=== PATIENT | female | born 1995 | race Two or more races ===

== ENCOUNTER 2017-05-01 17:01 | Observation (INO) | payer SELFPAY ==
[2017-05-01] MEDS ORDERED: RINGERS SOLUTION,LACTATED 1,000 ML IV ONE (17:30)
[2017-05-01 17:34] VITALS: BP 92/53
[2017-05-01] MEDS ORDERED: PREN1TAB89 PO (17:52)
== END 2017-05-01 20:17 | disposition home or self-care (01) ==
LOC: 4S 17:09
PROVIDERS: ADMIT Obstetrics & Gynecology; ATTEND Obstetrics & Gynecology
DX: O36.8130 Decreased fetal movements, third trimester, not applicable or unspecified (principal); Z3A.34 34 weeks gestation of pregnancy
CPT/HCPCS: 59025; 76805; 96360; G0378; J7120; 86703

== ENCOUNTER 2017-05-21 11:15 | Observation (INO) | payer OTHER ==
[~2017-05-21] VITALS: Ht 170.2 cm; Wt 81.2 kg
[~2017-05-21 11:15] MED LIST: PREN1TAB89 PO
[2017-05-21 11:40] VITALS: BP 103/66
[2017-05-21] MEDS: RINGERS SOLUTION,LACTATED 1,000 ML IV SCH ×2 (11:43→13:15)
== END 2017-05-21 15:40 | disposition home or self-care (01) ==
LOC: 4S 11:15
PROVIDERS: ADMIT Obstetrics & Gynecology; ATTEND Obstetrics & Gynecology
DX: Z34.93 Encounter for supervision of normal pregnancy, unspecified, third trimester (principal); Z3A.37 37 weeks gestation of pregnancy
CPT/HCPCS: 59025; 96360; 96361; G0378; J7120

== ENCOUNTER 2017-05-21 17:19 | Inpatient (IN) | payer OTHER ==
[~2017-05-21] VITALS: Ht 170.2 cm; Wt 80.7 kg
[2017-05-27] MEDS ORDERED: RINGERS SOLUTION,LACTATED 1,000 ML IV PRN (19:15)
[2017-05-27] MEDS ORDERED: FentaNYL CITRATE-PF 100 MCG/2 ML VIAL IVP PRN (19:15)
[2017-05-27] MEDS ORDERED: CITRIC ACID/SODIUM CITRATE 30 ML SOLUTION UDCUP PO PRN (19:15)
[2017-05-27] MEDS ORDERED: OXYTOCIN 30 UNITS/LACT RINGERS 500 ML IV ONE (19:15)
[2017-05-27] MEDS ORDERED: METOCLOPRAMIDE HCL 5 MG/ML 2 ML VIAL IVP PRN (19:15)
[2017-05-27] MEDS ORDERED: AMPICILLIN SODIUM 2 GM/NS 100 ML IV ONE (19:30)
[2017-05-27] MEDS ORDERED: DINOPROSTONE 10 MG VAGINAL SUPPOSITORY VG ONE (19:30)
[2017-05-27 19:51] LABS: BASOPHILS % (AUTO) 0.2 % (0.0-2.0); EOSINOPHILS % (AUTO) 1.2 % (1.0-6.0); HEMATOCRIT 33.4 % (36-46); HEMOGLOBIN 11.4 g/dL (12.0-16.0); LYMPHOCYTES % (AUTO) 28.9 % (22.0-44.0); MEAN CORPUSCULAR HEMOGLOBIN 29.4 pg (26.0-34.0); MEAN CORPUSCULAR HGB CONC 34.1 G/dL (31.0-37.0); MEAN CORPUSCULAR VOLUME 86 fL (80-100); MONOCYTES # (AUTO) 0.4 K/uL (0.1-1.0); MONOCYTES % (AUTO) 6.3 % (2.0-9.0); NEUTROPHILS # (AUTO) 4.4 K/uL (1.8-7.7); NEUTROPHILS % (AUTO) 63.4 % (40.0-70.0); RED BLOOD CELL COUNT(AUTO) 3.89 MIL/uL (4.00-5.20); RED CELL DISTRIBUTION WIDTH 13.9 % (11.5-14.5); WHITE BLOOD COUNT (AUTO) 6.9 K/uL (4.5-11.0)
[2017-05-27] MEDS: RINGERS SOLUTION,LACTATED 1,000 ML IV SCH (20:35)
[2017-05-27 22:04] VITALS: BP 103/58
[2017-05-28] MEDS: AMPICILLIN SODIUM 1 GM/NS 50 ML IV SCH ×4 (01:12→13:31)
[2017-05-28] MEDS: RINGERS SOLUTION,LACTATED 1,000 ML IV SCH ×4 (03:50→22:09)
[2017-05-28] MEDS ORDERED: -PHARMACY NOTE- MISC ONE ×2 (07:30)
[2017-05-28] MEDS ORDERED: OXYTOCIN 30 UNITS/LACT RINGERS 500 ML IV PRN (09:02)
[2017-05-28] MEDS ORDERED: ONDANSETRON HCL 4 MG/2 ML VIAL IVP ONE (12:00)
[2017-05-28] MEDS ORDERED: KETOROLAC TROMETHAMINE 60 MG/2 ML VIAL IM ONE (12:00)
[2017-05-28] MEDS ORDERED: EPHEDrine SULFATE 50 MG/ML VIAL IM ONE (12:00)
[2017-05-28] MEDS ORDERED: OXYTOCIN 10 UNITS/ML VIAL IM ONE (12:00)
[2017-05-28] MEDS ORDERED: DEXAMETHASONE SOD PHOS 4 MG/ML VIAL IVP ONE (12:00)
[2017-05-28] MEDS ORDERED: BUPIVACAINE HCL/PF 0.25% 30 ML VIAL ONE (12:32)
[2017-05-28] MEDS ORDERED: BUPIVACAINE HCL 0.125%/NS/PF 100 ML ED ONE (12:33)
[2017-05-28] MEDS ORDERED: LIDOCAINE HCL 2%/EPI 1:200,000/PF 10 ML VIAL ONE (15:34)
[2017-05-28] MEDS ORDERED: FentaNYL CITRATE-PF 100 MCG/2 ML VIAL ONE (15:51)
[2017-05-28] MEDS ORDERED: MORPHINE SULFATE/PF 0.5 MG/ML 10 ML AMP ONE (15:52)
[2017-05-28] MEDS ORDERED: MIDAZOLAM HCL 2 MG/2 ML VIAL ONE (15:52)
[2017-05-28] MEDS ORDERED: GUM MASTIC/STORAX/MSAL/ALCOHOL LIQUID 0.67 ML VIAL TP ONE (16:19)
[2017-05-28] MEDS ORDERED: FentaNYL CITRATE-PF 100 MCG/2 ML VIAL IVP PRN ×2 (16:30→16:45)
[2017-05-28] MEDS ORDERED: DiphenhydrAMINE HCL 50 MG/ML VIAL IVP PRN ×2 (16:30→16:45)
[2017-05-28] MEDS ORDERED: ONDANSETRON HCL 4 MG/2 ML VIAL IVP PRN ×2 (16:30→16:45)
[2017-05-28] MEDS ORDERED: MORPHINE SULFATE 2 MG/ML SYRINGE IVP PRN (16:30)
[2017-05-28] MEDS ORDERED: MORPHINE SULFATE 4 MG/ML SYRINGE IVP PRN (16:45)
[2017-05-28] MEDS ORDERED: OXYGEN THERAPY IH SCH ×2 (20:00)
[2017-05-28] MEDS ORDERED: OxyCODONE HCL/ACETAMINOPHEN 5-325 MG TABLET PO PRN (20:00)
[2017-05-28] MEDS ORDERED: LANOLIN 7 GM OINTMENT TP PRN (20:00)
[2017-05-28] MEDS: SENNA/DOCUSATE SODIUM 187-50 MG TABLET PO SCH (21:00)
[2017-05-28] MEDS: NALBUPHINE HCL 10 MG/ML VIAL IVP SCH (21:00)
[2017-05-28] MEDS: MAGNESIUM HYDROXIDE SUSPENSION 30 ML UDCUP PO SCH (21:00)
[2017-05-28] MEDS: KETOROLAC TROMETHAMINE 30 MG/ML VIAL IVP SCH (22:58)
[2017-05-29] MEDS: NALBUPHINE HCL 10 MG/ML VIAL IVP SCH ×2 (03:15→08:55)
[2017-05-29] MEDS: KETOROLAC TROMETHAMINE 30 MG/ML VIAL IVP SCH ×2 (05:29→11:24)
[2017-05-29] MEDS: RINGERS SOLUTION,LACTATED 1,000 ML IV SCH ×3 (05:54→13:59)
[2017-05-29 06:26] LABS: BASOPHILS % (AUTO) 0.3 % (0.0-2.0); EOSINOPHILS % (AUTO) 0.1 % (1.0-6.0); HEMATOCRIT 31.4 % (36-46); HEMOGLOBIN 10.8 g/dL (12.0-16.0); LYMPHOCYTES # (AUTO) 1.9 K/uL (1.0-4.8); LYMPHOCYTES % (AUTO) 14.8 % (22.0-44.0); MEAN CORPUSCULAR HEMOGLOBIN 29.5 pg (26.0-34.0); MEAN CORPUSCULAR HGB CONC 34.3 G/dL (31.0-37.0); MEAN CORPUSCULAR VOLUME 86 fL (80-100); MONOCYTES # (AUTO) 0.6 K/uL (0.1-1.0); NEUTROPHILS # (AUTO) 10.3 K/uL (1.8-7.7); NEUTROPHILS % (AUTO) 79.8 % (40.0-70.0); RED BLOOD CELL COUNT(AUTO) 3.64 MIL/uL (4.00-5.20); RED CELL DISTRIBUTION WIDTH 14.1 % (11.5-14.5); WHITE BLOOD COUNT (AUTO) 12.9 K/uL (4.5-11.0)
[2017-05-29] MEDS: MAGNESIUM HYDROXIDE SUSPENSION 30 ML UDCUP PO SCH ×2 (08:54→21:45)
[2017-05-29] MEDS: SENNA/DOCUSATE SODIUM 187-50 MG TABLET PO SCH ×2 (08:54→21:45)
[2017-05-29] MEDS: OxyCODONE HCL/ACETAMINOPHEN 5-325 MG TABLET PO PRN ×3 (14:45→21:46)
[2017-05-29] MEDS ORDERED: IBUPROFEN 600 MG TABLET PO PRN (17:00)
[2017-05-29] MEDS: IBUPROFEN 800 MG TABLET PO SCH (17:06)
[2017-05-30] MEDS: IBUPROFEN 800 MG TABLET PO SCH ×3 (01:07→14:06)
[2017-05-30] MEDS: OxyCODONE HCL/ACETAMINOPHEN 5-325 MG TABLET PO PRN ×3 (01:31→18:22)
[2017-05-30] MEDS: SENNA/DOCUSATE SODIUM 187-50 MG TABLET PO SCH (09:21)
[2017-05-30] MEDS: MAGNESIUM HYDROXIDE SUSPENSION 30 ML UDCUP PO SCH ×2 (09:21→09:22)
[2017-05-30] MEDS ORDERED: IBUP-2070 PO (17:43)
[2017-05-30] MEDS ORDERED: DSS100 PO (17:44)
== END 2017-05-30 18:50 | disposition home or self-care (01) | DRG 765 ==
LOC: 4S 05-27 18:00 → OBSVTOIN 05-27 19:25 → 4S 05-28 17:59
PROVIDERS: ADMIT Obstetrics & Gynecology; ATTEND Obstetrics & Gynecology
PROC: 10D00Z1 Extraction of Products of Conception, Low, Open Approach (ICD-10-PCS; principal; 2017-05-29)
DX: O76 Abnormality in fetal heart rate and rhythm complicating labor and delivery (principal); O41.03X0 Oligohydramnios, third trimester, not applicable or unspecified; O77.0 Labor and delivery complicated by meconium in amniotic fluid; Z37.0 Single live birth; Z3A.38 38 weeks gestation of pregnancy
CPT/HCPCS: J0290; J1100; J1885; J2250; J2274; J2300; J2405; J2590; J2765; J3010; J3490; J7120